=== PATIENT | male | born 1985 | race Caucasian/White ===

== ENCOUNTER 2022-02-16 08:18 | Emergency (ER) | payer SELFPAY ==
[~2022-02-16] VITALS: Ht 165.1 cm; Wt 64.0 kg
[2022-02-16] MEDS ORDERED: KETOROLAC 60MG/2ML VIAL IM STA (08:34)
[2022-02-16 09:45] LABS: CLARITY URINE CLEAR (CLEAR); COLOR URINE YELLOW (YELLOW); KETONES URINE NEGATIVE (NEGATIVE); LEUKOCYTE ESTERASE URINE NEGATIVE (NEGATIVE); NITRITE URINE NEGATIVE (NEGATIVE); OCCULT BLOOD URINE NEGATIVE (NEGATIVE); PROTEIN URINE NEGATIVE (NEGATIVE); SPECIFIC GRAVITY URINE 1.021 (1.005-1.030); UROBILINOGEN URINE 0.2 E.U./dL (0.2-1.0)
[2022-02-16 10:00] LABS: BASOPHILS % 0.9 % (0.0-2.0); HEMATOCRIT. 44.7 % (42.0-52.0); HEMOGLOBIN. 15.3 g/dL (14.0-18.0); LYMPHOCYTES % 17.2 % (20.0-50.0); MEAN CORPUSCULAR HEMOGLOBIN 28.4 pg (28.0-32.0); MEAN CORPUSCULAR VOLUME 82.7 fL (80.0-94.0); MEAN PLATELET VOLUME 7.2 fl (7.4-10.4); MONOCYTES % 4.2 % (2.0-8.0); NEUTROPHILS % 76.7 % (40.0-76.0); PLATELET 324 x1000/uL (130-400); RED BLOOD CELL COUNT 5.41 mill/uL (4.7-6.1); RED CELL DISTRIBUTION WIDTH 13.4 % (11.6-14.6)
[2022-02-16 10:35] LABS: CHLORIDE 107 mEq/L (98-107)
[2022-02-16] MEDS ORDERED: IBUP-2028 MT (10:54)
[2022-02-16] MEDS ORDERED: TRAM50TA3 MT (10:54)
[2022-02-16] MEDS ORDERED: IBUPROFEN 400MG TABLET PO ONE (11:15)
[2022-02-16] MEDS ORDERED: KETOROLAC 30MG/ML VIAL IV SCH (12:15)
[2022-02-16] MEDS ORDERED: IBUPROFEN 400MG TABLET PO SCH (12:15)
[2022-02-16] MEDS ORDERED: KETOROLAC 30MG/ML VIAL IM SCH (12:44)
[2022-02-16 12:45] VITALS: BP 138/82
== END 2022-02-16 12:49 | disposition home or self-care (01) ==
LOC: ER 08:18
DX: R10.9 Unspecified abdominal pain (principal); Z98.890 Other specified postprocedural states
CPT/HCPCS: 36415; 74176; 80053; 81003; 83690; 85025; 96372; 99284; J1885